=== PATIENT | female | born 1940 | race Caucasian/White ===

== ENCOUNTER 2023-08-14 09:40 | Inpatient (IN) | payer MEDICARE ==
[~2023-08-14] VITALS: Ht 170.2 cm; Wt 65.8 kg
[2023-08-14 10:54] LABS: BASOPHILS % (AUTO) 0.4 % (0.0-2.0); EOSINOPHILS # (AUTO) 0.1 K/uL (0.0-0.7); EOSINOPHILS % (AUTO) 1.9 % (0.0-6.0); HEMATOCRIT 28 % (33-45); HEMOGLOBIN 8.9 g/dL (11.5-14.8); LYMPHOCYTES # (AUTO) 1.1 K/uL (0.8-4.8); LYMPHOCYTES % (AUTO) 17.1 % (20.0-44.0); MEAN CORPUSCULAR HEMOGLOBIN 25 PG (26.0-33.0); MEAN CORPUSCULAR HGB CONC 32 g/dl (31.0-36.0); MEAN CORPUSCULAR VOLUME 77 fL (82-100); MONOCYTES # (AUTO) 0.7 K/uL (0.1-1.30); MONOCYTES % (AUTO) 10.8 % (2.0-12.0); NEUTROPHILS # (AUTO) 4.3 K/uL (1.8-8.9); NEUTROPHILS % (AUTO) 69.8 % (43.0-81.0); PLATELET COUNT (AUTO) 369 K/uL (150-450); RED BLOOD CELL COUNT(AUTO) 3.58 MIL/uL (4.0-5.2); RED CELL DISTRIBUTION WIDTH 16.3 % (11.5-15.0); WHITE BLOOD COUNT (AUTO) 6.2 K/uL (4.3-11.0)
[2023-08-14] MEDS ORDERED: IOHEXOL-350 100 ML VIAL IV ONE (10:54)
[2023-08-14] MEDS ORDERED: IV NS 0.9% 250 ML IV ONE (10:55)
[2023-08-14 10:57] LABS: CALCIUM, SERUM 9.5 mg/dL (8.5-10.1); CARBON DIOXIDE 25 mmol/L (21-32); CHLORIDE 88 mmol/L (98-107); CREATININE 0.9 mg/dL (0.6-1.3); GLUCOSE 147 mg/dL (74-106); POTASSIUM 3.9 mmol/L (3.5-5.1); SODIUM SERUM 125 mmol/L (136-145); UREA NITROGEN, BLOOD 13 mg/dL (7-18)
[2023-08-14] MEDS ORDERED: FERR325T23 PO (13:42)
[2023-08-14] MEDS ORDERED: AMLO-212 PO (13:42)
[2023-08-14] MEDS ORDERED: VITA-354 PO (13:42)
[2023-08-14] MEDS ORDERED: METF-442 PO (13:42)
[2023-08-14] MEDS ORDERED: MAGN200T4 PO (13:42)
[2023-08-14] MEDS ORDERED: ASPI-1169 PO (13:42)
[2023-08-14] MEDS ORDERED: ONDANSETRON HCL/PF 4 MG/2 ML VIAL IVP PRN (18:00)
[2023-08-14] MEDS ORDERED: ZOLPIDEM TARTRATE 5 MG TABLET PO PRN (18:00)
[2023-08-14] MEDS ORDERED: Z GUARD REMEDY 4 OZ OINT TP PRN (18:00)
[2023-08-14] MEDS ORDERED: MAGNESIUM HYDROXIDE 30 ML UDC PO PRN (18:00)
[2023-08-14] MEDS ORDERED: MAG HYDROX/AL HYDROX/SIMETH 30 ML UDC PO PRN (18:00)
[2023-08-14] MEDS ORDERED: BLOOD SUGAR DIAGNOSTIC 1 EACH STRIP IN SCH (18:00)
[2023-08-14] MEDS ORDERED: ACETAMINOPHEN 325 MG TABLET PO PRN (18:00)
[2023-08-14 18:30] VITALS: BP 123/57; TEMP 97.7; O2SAT 96
[2023-08-14 20:00] VITALS: BP 136/64; TEMP 98.2; O2SAT 98
[2023-08-14] MEDS: MAGNESIUM OXIDE 400 MG TABLET PO SCH (20:27)
[2023-08-14] MEDS: BLOOD SUGAR DIAGNOSTIC 1 EACH STRIP IN SCH (21:58)
[2023-08-14] MEDS: SIMVASTATIN 20 MG TABLET PO SCH (21:58)
[2023-08-14] MEDS ORDERED: DEXTROSE 50%-WATER 50 ML DISP.SYRIN IV PRN (23:00)
[2023-08-14] MEDS: *INSULIN REGULAR(HUMULIN R)HUM 100 UNIT/ML VIAL SQ PRN (23:28)
[2023-08-15] VITALS: BP 125/59; TEMP 97.9; O2SAT 98
[2023-08-15 04:00] VITALS: BP 152/66; TEMP 97.5; O2SAT 98
[2023-08-15 05:54] LABS: BASOPHILS # (AUTO) 0.1 K/uL (0.0-0.2); BASOPHILS % (AUTO) 1.2 % (0.0-2.0); EOSINOPHILS # (AUTO) 0.1 K/uL (0.0-0.7); EOSINOPHILS % (AUTO) 2.1 % (0.0-6.0); HEMATOCRIT 24 % (33-45); HEMOGLOBIN 7.8 g/dL (11.5-14.8); LYMPHOCYTES # (AUTO) 0.9 K/uL (0.8-4.8); LYMPHOCYTES % (AUTO) 17.8 % (20.0-44.0); MEAN CORPUSCULAR HEMOGLOBIN 25 PG (26.0-33.0); MEAN CORPUSCULAR HGB CONC 32 g/dl (31.0-36.0); MEAN CORPUSCULAR VOLUME 77 fL (82-100); MONOCYTES # (AUTO) 0.6 K/uL (0.1-1.30); MONOCYTES % (AUTO) 13.4 % (2.0-12.0); NEUTROPHILS # (AUTO) 3.2 K/uL (1.8-8.9); NEUTROPHILS % (AUTO) 65.5 % (43.0-81.0); PLATELET COUNT (AUTO) 279 K/uL (150-450); RED BLOOD CELL COUNT(AUTO) 3.13 MIL/uL (4.0-5.2); RED CELL DISTRIBUTION WIDTH 16.3 % (11.5-15.0); WHITE BLOOD COUNT (AUTO) 4.8 K/uL (4.3-11.0)
[2023-08-15 06:08] LABS: CALCIUM, SERUM 9.1 mg/dL (8.5-10.1); MAGNESIUM 1.7 mg/dL (1.8-2.4); PHOSPHORUS 4.1 mg/dL (2.5-4.9); POTASSIUM 3.4 mmol/L (3.5-5.1)
[2023-08-15 06:09] LABS: THYROID STIMULATING HORMONE 2.628 uIU/mL (0.358-3.74)
[2023-08-15 07:30] VITALS: BP 122/53; TEMP 97.5; O2SAT 98
[2023-08-15] MEDS: PANTOPRAZOLE 40 MG VIAL IV SCH (08:27)
[2023-08-15] MEDS: ASPIRIN 81 MG TAB.CHEW PO SCH (08:27)
[2023-08-15] MEDS: VITAMIN E 400 UNIT CAPSULE PO SCH (08:27)
[2023-08-15] MEDS: FERROUS SULFATE (325 MG) 325 MG/TAB TABLET PO SCH (08:27)
[2023-08-15] MEDS ORDERED: ASPIRIN 81 MG TAB.CHEW PO SCH (09:00)
[2023-08-15] MEDS: POTASSIUM CHLORIDE 20 MEQ TAB.PRT.SR PO SCH (11:18)
[2023-08-15] MEDS: CLOPIDOGREL BISULFATE 75 MG TABLET PO SCH (11:18)
[2023-08-15] MEDS: INSULIN REGULAR, HUMAN 100 UNIT/ML 3 ML VIAL SQ PRN (11:55)
[2023-08-15 16:00] VITALS: BP 128/49; TEMP 97.5; O2SAT 96
[2023-08-15] MEDS: LORAZEPAM 0.5 MG TABLET PO ONE (16:02)
[2023-08-15 20:00] VITALS: BP 145/63; TEMP 97.5; O2SAT 98
[2023-08-15] MEDS: ATORVASTATIN 40 MG TABLET PO SCH (22:37)
[2023-08-16] VITALS: BP 143/62; TEMP 97.7; O2SAT 97
[2023-08-16 04:00] VITALS: BP 146/58; TEMP 97.5; O2SAT 99
[2023-08-16 07:00] VITALS: BP 148/60; TEMP 97.5; O2SAT 99
[2023-08-16 07:51] LABS: BASOPHILS % (AUTO) 0.7 % (0.0-2.0); EOSINOPHILS # (AUTO) 0.2 K/uL (0.0-0.7); EOSINOPHILS % (AUTO) 3.6 % (0.0-6.0); HEMATOCRIT 24 % (33-45); HEMOGLOBIN 7.7 g/dL (11.5-14.8); LYMPHOCYTES # (AUTO) 0.8 K/uL (0.8-4.8); LYMPHOCYTES % (AUTO) 17.4 % (20.0-44.0); MEAN CORPUSCULAR HEMOGLOBIN 25 PG (26.0-33.0); MEAN CORPUSCULAR HGB CONC 32 g/dl (31.0-36.0); MEAN CORPUSCULAR VOLUME 78 fL (82-100); MONOCYTES # (AUTO) 0.7 K/uL (0.1-1.30); MONOCYTES % (AUTO) 15.4 % (2.0-12.0); NEUTROPHILS # (AUTO) 2.7 K/uL (1.8-8.9); NEUTROPHILS % (AUTO) 62.9 % (43.0-81.0); PLATELET COUNT (AUTO) 289 K/uL (150-450); RED CELL DISTRIBUTION WIDTH 16.1 % (11.5-15.0); WHITE BLOOD COUNT (AUTO) 4.4 K/uL (4.3-11.0)
[2023-08-16 08:12] LABS: CALCIUM, SERUM 8.8 mg/dL (8.5-10.1); CARBON DIOXIDE 28 mmol/L (21-32); CHLORIDE 95 mmol/L (98-107); CREATININE 0.8 mg/dL (0.6-1.3); GLUCOSE 235 mg/dL (74-106); MAGNESIUM 1.6 mg/dL (1.8-2.4); PHOSPHORUS 4.3 mg/dL (2.5-4.9); POTASSIUM 4.2 mmol/L (3.5-5.1); SODIUM SERUM 130 mmol/L (136-145); UREA NITROGEN, BLOOD 12 mg/dL (7-18)
[2023-08-16] MEDS ORDERED: MAGNESIUM OXIDE 400 MG TABLET PO ONE (11:00)
[2023-08-16] MEDS: Magnesium 1GM/D5W 100ML PREMIX 100 ML IV SCH (11:45)
[2023-08-16 12:00] VITALS: BP 133/67; TEMP 98.8; O2SAT 98
[2023-08-16] MEDS ORDERED: FERR325T23 PO (12:49)
[2023-08-16] MEDS ORDERED: ASPI-1169 PO (12:49)
[2023-08-16] MEDS ORDERED: ATOR40TA PO (12:49)
[2023-08-16] MEDS ORDERED: MAGN200T4 PO (12:49)
[2023-08-16] MEDS ORDERED: AMLO-212 PO (12:49)
[2023-08-16] MEDS ORDERED: CLOP75TA15 PO (12:49)
[2023-08-16] MEDS ORDERED: METF-442 PO (12:49)
[2023-08-16 16:00] VITALS: BP 161/72; TEMP 99.3; O2SAT 97
[2023-08-17] MEDS ORDERED: PANTOPRAZOLE 40 MG TABLET.DR PO SCH (09:00)
== END 2023-08-16 18:45 | disposition home health service (06) | DRG 65 ==
LOC: ER 09:43 → TELE 16:20
PROVIDERS: ADMIT Nurse Practitioner Acute Care; ATTEND Nurse Practitioner Acute Care
DX: I63.59 Cerebral infarction due to unspecified occlusion or stenosis of other cerebral artery (principal); E87.1 Hypo-osmolality and hyponatremia; R29.702 NIHSS score 2; I10 Essential (primary) hypertension; Z91.148 Patient's other noncompliance with medication regimen for other reason; E11.40 Type 2 diabetes mellitus with diabetic neuropathy, unspecified; Z88.0 Allergy status to penicillin; Z88.5 Allergy status to narcotic agent; D50.9 Iron deficiency anemia, unspecified; E87.8 Other disorders of electrolyte and fluid balance, not elsewhere classified; Z79.84 Long term (current) use of oral hypoglycemic drugs; Z79.82 Long term (current) use of aspirin; Z79.899 Other long term (current) drug therapy; I65.23 Occlusion and stenosis of bilateral carotid arteries
CPT/HCPCS: 36415; 70450-TC; 70496-TC; 70498-TC; 70551-TC; 71045-TC; 80048-TC; 80061-TC; 82728-TC; 82962-TC; 83540-TC; 83735-TC; 84100-TC; 84439-TC; 84443-TC; 84484-TC; 85025-TC; 92526; 92611-TC; 93307-TC; 93880-TC; 97110-TC; 97116-TC; 97530-TC; 97535-TC; A4223; C9113; G0378; J1815; J3475; J7050; Q9967